=== PATIENT | female | born 1940 | race Caucasian/White ===

== ENCOUNTER 2017-02-08 10:37 | Emergency (ER) | payer MEDICARE, BC ==
[2017-02-08 11:29] VITALS: BP 149/71
--- NOTE | 2017-02-08 11:35 | ERNOTE ---
Medical Problem HPI - Narrative Date of Service: 02/08/17 - General Chief Complaint: Fall Time Seen by Provider: 02/08/17 11:17 Source: patient, RN notes reviewed Exam Limitations: no limitations - Immun/Allergies/Home Medications Immunizations: IMMUNIZATION HX Immunizations Up to Date Yes History of Influenza Vaccine No Hx Pneumococcal Vaccination No Allergies/Adverse Reactions: Allergies ciprofloxacin Allergy (Severe, Verified 12/20/14 08:14) TONGUE SWELLING adhesive tape Adverse Reaction (Mild, Verified 12/20/14 08:14) SILK AND LATEX CLOTH TAPE CAUSE RASH codeine Adverse Reaction (Mild, Verified 12/20/14 08:14) Nausea Penicillins Adverse Reaction (Mild, Verified 12/20/14 08:14) RASH Home Medications: HOME MEDICATIONS ALPRAZolam [Xanax] 0.5 mg PO BID PRN 02/19/14 [Last Taken Unknown] Citalopram Hydrobromide [Citalopram HBr] 20 mg PO DAILY 02/19/14 [Last Taken Unknown] Ascorbic Acid [Vitamin C] 1,000 mg PO DAILY 12/13/14 [Last Taken Unknown] Calcium Carbonate/Vitamin D3 [Calcium 500 + Vit D3 400 Tab] 1 each PO DAILY [Last Taken Unknown] Cyanocobalamin [Vitamin B-12] 1,000 mcg PO DAILY 12/13/14 [Last Taken Unknown] Docusate Sodium [Colace] 100 mg PO DAILY PRN 12/13/14 [Last Taken Unknown] Flaxseed Oil [Flax Seed Oil] 1,000 mg PO DAILY 12/13/14 [Last Taken Unknown] Levocarnitine Tartrate [l-Carnitine] 250 mg PO DAILY 12/13/14 [Last Taken Unknown] Levothyroxine Sodium [Synthroid] 88 mcg PO DAILY 12/13/14 [Last Taken Unknown] Magnesium Oxide/Magnesium [Magnesium 300 mg Capsule] 300 mg PO DAILY 12/13/14 [ Last Taken Unknown] Pyridoxine HCl [Vitamin B-6] 50 mg PO DAILY 12/13/14 [Last Taken Unknown] Selenium 50 mcg PO DAILY 12/13/14 [Last Taken Unknown] Thiamine HCl [Vitamin B-1] 100 mg PO DAILY 12/13/14 [Last Taken Unknown] Ubidecarenone [Co Q-10] 100 mg PO DAILY 12/13/14 [Last Taken Unknown] Vitamin E 400 unit PO DAILY 12/13/14 [Last Taken Unknown] Zinc 100 mg PO DAILY 12/13/14 [Last Taken Unknown] Chlorthalidone [Hygroton] 12.5 mg PO DAILY 02/08/17 [Last Taken Unknown] traMADol HCL [Ultram] 50 mg PO Q6H PRN #20 tablet 02/08/17 [Last Taken Unknown] - History of Present History Narrative: 77 year old female ambulatory to the ED for left lower lateral rib pain due to a fall 3 days ago. She tripped over some objects that were in her way in her hallway. She denies LOC or other injuries. She came in for evaluation after being told at [facility] this morning that she should "get checked out." She has been taking Tylenol for pain without much improvement. Date (Duration): 02/05/17 Review of Systems - Review of Systems Constitutional: Absent: recent illness, fever EYE: Present: no symptoms reported ENT: Present: no symptoms reported Respiratory: Absent: shortness of breath, cough, orthopnea, wheezing Cardiology: Absent: palpitations, syncope Gastrointestinal/Abdominal: Absent: nausea, abdominal pain Genitourinary: Present: no symptoms reported Musculoskeletal: Present: muscle pain. Absent: back pain, neck pain Skin: Absent: lesions, lumps Neurological: Absent: dizziness/light-headedness, weakness, numbness Endocrine: Present: no symptoms reported Hematologic/Lymphatic: Present: no symptoms reported Psych: Present: no symptoms reported - Patient's Past Medical History Patient History - Medical: Anxiety, Kidney stone, UTI'S, Other Patient History - Cardiac/Respiratory: Hypertension, Hyperlipidemia Patient History - Cancer: No Hx of Cancer Patient History - Surgical Procedures: Appendectomy, Cataracts, Cholecystectomy , EGD, Total Hip Replacement, T & A Patient History - Other: None LMP (females 10-50): Menopausal - Social History Living Situations: alone Abuse History: No History of abuse Psych History: Hx of Anxiety, Hx of Depression, Current tx/ever been on anti- depressants or anti-anxiety meds Smoking Status: Never smoker Have you smoked in the past 12 months: No Do you dip or chew tobacco: No Alcohol Use: rarely Drug Use: none - Immunizations Immunizations Up to Date: Yes Hx Pneumococcal Vaccination: No History of Influenza Vaccine: No Physical Exam - Physical Exam General Appearance: Present: wd/wn, alert, no apparent distress, other - splints her left side when laughing Head Exam: Present: normal inspection, no evidence of injury Respiratory: Present: no respiratory distress, normal breath sounds, no accessory muscle use, lungs clear, chest tenderness - Left lower lateral ribs Cardiovascular/Chest: Present: regular rate, rhythm, no murmur Extremity Exam: Present: normal inspection, normal range of motion, no edema Neurological Exam: Present: alert, oriented, normal mood/affect, no motor/ sensory deficits Skin Exam: Present: normal color, warm/dry ED Progress - Vital Signs Patient's Vital Signs:: I have reviewed the patient's vital signs. Vital Signs: Vital Signs 02/08/17 10:43 Temperature 37.1 C Pulse Rate 62 Respiratory 14 Rate Blood Pressure 153/79 O2 Sat by Pulse 96 Oximetry - Progress/Reassessment Chief Complaint: Fall Progress:: Unchanged Plan - Plan Plan: Discussed contused ribs vs. broken ribs and that the treatment does not differ, patient declined to have xray. Tramadol rx for pain, reports having taken this in the past and tolerating it well. Departure Clinical Impression: Rib pain on left side Fall at home Qualifiers: Encounter type: initial encounter Qualified Code(s): W19.XXXA - Unspecified fall, initial encounter; Y92.099 - Unspecified place in other non-institutional residence as the place of occurrence of the external cause; Y92.099 - Unspecified place in other non-institutional residence as the place of occurrence of the external cause - Departure Disposition: Home self-care Condition: Good Instructions: Rib Contusion Additional Instructions: Continue your routine medications You can also take Tylenol with the prescription pain medication Follow up as needed for new or worsening symptoms Referrals: Felicity Watkins MD [Primary Care Provider] - Prescriptions: traMADol HCL [Ultram] 50 mg PO Q6H PRN #20 tablet PRN Reason: Pain
== END 2017-02-08 11:33 | disposition home or self-care (01) ==
LOC: ER 10:37
DX: R07.81 Pleurodynia (principal); Z87.442 Personal history of urinary calculi; Z87.440 Personal history of urinary (tract) infections; I10 Essential (primary) hypertension; F41.9 Anxiety disorder, unspecified; W19.XXXA Unspecified fall, initial encounter